=== PATIENT | male | born 1985 | race Caucasian/White ===

== ENCOUNTER 2016-11-13 01:21 | Emergency (ER) | payer BC ==
--- NOTE | ~2016-11-13 | ER ---
PATIENT'S NAME: RAMANA NIEVES [facility] AGE: 31 Y [address] ROOM: [place] [id number] LOCATION: [facility] ADMIT DATE: 11/13/2016 ER/Outpatient Report DISCHARGE DATE: 11/13/2016 FAMILY PHYSICIAN: PHYSICIAN, CHRISTIANO ATTENDING PHYSICIAN: Austyn Martin CHIEF COMPLAINT: Chest pain. HISTORY OF PRESENT ILLNESS: Mr. Nieves [place] train tonight on his way to [place]. Approximately 9:00 p.m., he developed some discomfort in his chest that progressed over the course of the last few hours. He began to be very uncomfortable and decided to come in for evaluation. Ambulance was called. He was hemodynamically stable. Able to ambulate and was brought in. He states he had some [place] food this evening before work. The pain is pressure-like and it is centered right in the middle of his chest and does go through to the back somewhat. He states overall it is just concerning enough that he wanted to get things checked out. He denies history of hypertension, diabetes, high cholesterol. He occasionally takes alcohol. He is not a smoker. He denies any recent immobilizations. MEDICATIONS: He does not take any medications. ALLERGIES: DENIES ANY MEDICAL ALLERGIES. REVIEW OF SYSTEMS: All systems reviewed and negative except as noted in the HPI. PHYSICAL EXAMINATION: VITAL SIGNS: Blood pressure 173/93, pulse 76, respiratory rate 18, temperature 97.2, SpO2 is 95% on room air. GENERAL: Age-appropriate male, sitting upright on exam table. No apparent pain or distress. NEUROLOGIC: Awake and alert. GCS 15. No focal deficits. No asymmetry. HEENT: Normocephalic, atraumatic. Eyes are PERRL. Oropharynx is clear. NECK: Supple. Trachea is midline. CHEST/HEART: Regular rate and rhythm with no murmurs. LUNGS: Clear to auscultation bilateral with no rhonchi, wheezes, or rales. ABDOMEN: Soft, nontender, and nondistended. No rebound or guarding. BACK: Normal to inspection and palpation. No CVA tenderness. EXTREMITIES: Warm and well perfused. No edema. No deformities. No erythema. PATIENT'S NAME: RAMANA NIEVES [facility] AGE: 31 Y [address] ROOM: [place], [place] [address] LOCATION: [facility] ADMIT DATE: 11/13/2016 ER/Outpatient Report DISCHARGE DATE: 11/13/2016 FAMILY PHYSICIAN: PHYSICIAN, NO ATTENDING PHYSICIAN: Austyn Martin SKIN: Clean, dry and intact. LABORATORY DATA AND X-RAYS: Chest x-ray is unremarkable per my review. Initial and repeat CK-MB and troponin are not elevated. EKG with some inversion of the T-waves in 3 and V1, stable on repeat EKG. No other ischemic changes. No other comparisons available. Electrolytes, mild hypokalemia at 3.4, otherwise unremarkable. Renal function, creatinine 1.0. GFR is greater than 90. No LFT abnormalities. Amylase and lipase within normal limits. D-dimer is below detectable threshold. CBC without abnormalities. INR is less than 1. Lactate is 1.4. IMPRESSION: 1. Chest pain, atypical, not otherwise specified. 2. Hypertension. EMERGENCY DEPARTMENT COURSE: The patient was seen and evaluated as above. He is given a GI cocktail with complete resolution of his symptoms. Based on the course, I did elect to obtain D-dimer. It effectively rules out PE with overall presentation. No signs of DVT. He was ruled out with serial troponin and EKG. Overall very low risk at this time. Asymptomatic currently. Recommend follow up with PCP for evaluation of hypertension and further cardiac evaluation if warranted. The patient was discharged in good condition with no other questions left unanswered at that time. MD LUIS BECKFORD/yonathan /[id number] d: 11/13/16 0703 t: 11/16/16 1243, OUTPATIENT REPORT
[2016-11-13 01:48] LABS: BASOPHIL # 0.1 K/uL (0.0-0.2); EOSINOPHIL # 0.2 K/uL (0.0-0.5); EOSINOPHIL % 2.8 %; HEMATOCRIT 42.8 % (37.0-53.0); HEMOGLOBIN 15.1 g/dL (12.0-17.0); IMMATURE GRANULOCYTE % 0.3 %; LYMPHOCYTE # 3.2 K/uL (0.8-4.0); LYMPHOCYTE % 36.9 %; MCH 31.5 pg (27.0-34.0); MCHC 35.3 gm/dL (32.0-36.5); MCV 89.4 fl (83.0-98.0); MONOCYTE # 0.6 K/uL (0.0-1.0); MONOCYTE % 7.3 %; MPV 9.4 fl (9.4-12.4); NEUTROPHIL # (ANC) 4.5 K/uL (1.4-9.0); NEUTROPHIL % 51.7 %; NRBC % 0 /100WBC (0-0.00); PLATELET COUNT 308 K/uL (150-450); RBC 4.79 M/uL (4.00-6.00); RDW-CV 12.9 % (11.9-14.6); WBC 8.7 K/uL (4.0-11.0)
[2016-11-13 01:58] LABS: INR - (THERAPEUTIC) 0.97 (0.92-1.07); PROTIME 10.2 SECONDS (9.8-11.4); PTT 30 SECONDS (25-32)
[2016-11-13 02:09] LABS: ALBUMIN 3.8 gm/dL (3.5-5.0); ALK PHOS 66 IU/L (33-138); ALT 67 IU/L (12-78); ANION GAP 11.4 (10.0-19.0); AST 32 IU/L (10-40); BLOOD UREA NITROGEN 20 mg/dL (6-24); CALCIUM 8.8 mg/dL (8.5-10.5); CHLORIDE 107 mMol/L (96-110); CO2 24 mMol/L (22-32); POTASSIUM 3.4 mMol/L (3.7-5.1); SODIUM 139 mMol/L (135-145); TOTAL BILIRUBIN 0.6 mg/dL (0.0-1.5); TOTAL PROTEIN 7.1 g/dL (6.0-8.4)
[2016-11-13 03:49] LABS: CPK 124 IU/L (35-332)
== END 2016-11-13 04:14 | disposition disaster alternative care site (69) ==
LOC: GMED 01:21
PROVIDERS: Emergency Medicine
DX: R07.89 Other chest pain (principal); I10 Essential (primary) hypertension

== ENCOUNTER → 2016-11-13 | Outpatient (CLI) | payer BC | END | disposition disaster alternative care site (69) | LOC: GAMB 00:57 | DX: R06.9 Unspecified abnormalities of breathing (principal); R06.02 Shortness of breath | CPT/HCPCS: A0422; A0425; A0427 ==